=== PATIENT | male | born 1950 | race Native Hawaiian/Other Pacific Islander ===

== ENCOUNTER 2016-11-02 15:11 | Outpatient (CLI) | payer OTHER ==
[2016-11-02 15:39] LABS: PLATELET COUNT 289 K/uL (142-355)
[2016-11-02 15:50] LABS: POTASSIUM 3.1 mmol/L (3.6-5.2)
== END 2016-11-02 22:11 | disposition home or self-care (01) ==
LOC: LAB 15:11
PROVIDERS: Internal Medicine Infectious Disease
DX: M86.8X8 Other osteomyelitis, other site (principal); Z22.322 Carrier or suspected carrier of Methicillin resistant Staphylococcus aureus
CPT/HCPCS: 80048; 80202; 85027

== ENCOUNTER 2016-11-10 20:04 | Outpatient (CLI) | payer OTHER | END 2016-11-10 23:42 | disposition home or self-care (01) | LOC: LAB 20:04 | DX: Z51.81 Encounter for therapeutic drug level monitoring (principal) | CPT/HCPCS: 80202 ==

== ENCOUNTER 2017-01-12 17:25 | Outpatient (CLI) | payer OTHER ==
[2017-01-12 18:58] LABS: PLATELET COUNT 275 K/uL (142-355)
[2017-01-12 19:11] LABS: POTASSIUM 3.8 mmol/L (3.6-5.2); SODIUM 138 mmol/L (136-145)
== END 2017-01-12 19:25 | disposition home or self-care (01) ==
LOC: LAB 17:25
DX: T81.31XD Disruption of external operation (surgical) wound, not elsewhere classified, subsequent encounter (principal); Z51.81 Encounter for therapeutic drug level monitoring; C41.3 Malignant neoplasm of ribs, sternum and clavicle; Z79.2 Long term (current) use of antibiotics
CPT/HCPCS: 80053; 80202; 85027; 85651; 86140

== ENCOUNTER 2017-01-18 15:46 | Outpatient (CLI) | payer OTHER ==
[2017-01-18 16:28] LABS: PLATELET COUNT 266 K/uL (142-355)
[2017-01-18 16:52] LABS: POTASSIUM 3.8 mmol/L (3.6-5.2)
== END 2017-01-18 16:46 | disposition home or self-care (01) ==
LOC: LAB 15:46
PROVIDERS: Internal Medicine Infectious Disease
DX: A49.02 Methicillin resistant Staphylococcus aureus infection, unspecified site (principal); Z79.2 Long term (current) use of antibiotics
CPT/HCPCS: 80053; 80202; 85027; 85651; 86140

== ENCOUNTER 2017-01-25 16:02 | Outpatient (CLI) | payer OTHER ==
[2017-01-25 16:22] LABS: PLATELET COUNT 239 K/uL (142-355)
[2017-01-25 17:09] LABS: POTASSIUM 3.9 mmol/L (3.6-5.2)
== END 2017-01-25 19:22 | disposition home or self-care (01) ==
LOC: LAB 16:02
PROVIDERS: Internal Medicine Infectious Disease
DX: A49.02 Methicillin resistant Staphylococcus aureus infection, unspecified site (principal)
CPT/HCPCS: 80053; 80202; 85027; 86140

== ENCOUNTER 2017-02-01 15:59 | Outpatient (CLI) | payer OTHER ==
[2017-02-01 16:20] LABS: PLATELET COUNT 232 K/uL (142-355)
[2017-02-01 16:26] LABS: POTASSIUM 3.3 mmol/L (3.6-5.2); SODIUM 142 mmol/L (136-145)
== END 2017-02-01 19:28 | disposition home or self-care (01) ==
LOC: LAB 15:59
PROVIDERS: Internal Medicine Infectious Disease
DX: T81.31XD Disruption of external operation (surgical) wound, not elsewhere classified, subsequent encounter (principal); C41.3 Malignant neoplasm of ribs, sternum and clavicle; B95.62 Methicillin resistant Staphylococcus aureus infection as the cause of diseases classified elsewhere; Z79.2 Long term (current) use of antibiotics; Z45.2 Encounter for adjustment and management of vascular access device; Z51.81 Encounter for therapeutic drug level monitoring
CPT/HCPCS: 80053; 80202; 85027; 85651; 86140

== ENCOUNTER 2017-02-08 16:12 | Outpatient (CLI) | payer OTHER ==
[2017-02-08 17:24] LABS: PLATELET COUNT 221 K/uL (142-355)
[2017-02-08 17:42] LABS: POTASSIUM 4.1 mmol/L (3.6-5.2); SODIUM 137 mmol/L (136-145)
== END 2017-02-08 19:35 | disposition home or self-care (01) ==
LOC: LAB 16:12
PROVIDERS: Internal Medicine Infectious Disease
DX: T81.31XD Disruption of external operation (surgical) wound, not elsewhere classified, subsequent encounter (principal); C41.3 Malignant neoplasm of ribs, sternum and clavicle; B95.62 Methicillin resistant Staphylococcus aureus infection as the cause of diseases classified elsewhere; Z79.2 Long term (current) use of antibiotics; Z45.2 Encounter for adjustment and management of vascular access device; Z51.81 Encounter for therapeutic drug level monitoring
CPT/HCPCS: 80053; 80202; 85027; 85651; 86140